=== PATIENT | male | born 1940 | race Caucasian/White ===

== ENCOUNTER 2019-03-08 23:15 | Emergency (ER) | payer OTHER, MEDICAID ==
[~2019-03-08] VITALS: Ht 170.2 cm; Wt 71.2 kg
[2019-03-08 23:15] VITALS: BP 122/50
--- NOTE | 2019-03-08 23:15 | NUR ---
78/M BIBA FROM [facility]. PT C/O DIARRHEA X3 DAYS. PT REPORTS MILD DIFFUSE ABD PAIN. DENIES FEVER, CP, SOB, N/V OR DYSURIA. PT AOX4, BEDBOUND, SKIN NORMAL WARM LOOSE AND DRY, SPO2 98% ON RA, RR 26 EVEN AND UNLABORED. LUNG SOUNDS CLEAR BL. BS HYPOACTIVE X4, ABD SOFT FLAT MILDLY TENDER. LBM 15 MINS AGO.
--- NOTE | 2019-03-08 23:20 | NUR ---
PT WITH 1.5CM SKIN TEAR ON R FA, OLD DRESSING REMOVED, CLEANED WITH NS AND GAUZE, PAT DRY, COVERED WITH TRANSPARENT DRESSING.
--- NOTE | 2019-03-08 23:20 | NUR ---
PT BIBA TO BED 3
[2019-03-08 23:43] LABS: BASOPHILS # (AUTO) 0.1 K/uL (0.00-0.22); BASOPHILS % (AUTO) 0.9 % (0.0-2.0); EOSINOPHILS # (AUTO) 0.1 K/uL (0-0.4); EOSINOPHILS % (AUTO) 0.6 % (0.0-4.0); HEMATOCRIT 26.9 % (36-52); HEMOGLOBIN 8.7 g/dL (12.0-18.0); LYMPHOCYTES # (AUTO) 0.4 K/uL (2.0-11.5); MEAN CORPUSCULAR HEMOGLOBIN 26 pg (27-31); MEAN CORPUSCULAR HGB CONC 33 g/dL (33-37); MEAN CORPUSCULAR VOLUME 81.1 fL (80-94); MONOCYTES % (AUTO) 9.3 % (1.7-9.3); NEUTROPHILS # (AUTO) 9.5 K/uL (1.8-7.7); NEUTROPHILS % (AUTO) 85.9 % (42.2-75.2); PLATELET COUNT (AUTO) 347 K/uL (140-450); RED BLOOD CELL COUNT(AUTO) 3.32 MIL/uL (4.20-6.10); WHITE BLOOD COUNT (AUTO) 11.1 K/uL (4.8-10.8)
[2019-03-08 23:53] LABS: ANION GAP 14.7 (8-16); CARBON DIOXIDE 23.8 mmol/L (21-32); CHLORIDE 103 mmol/L (98-107); GLUCOSE 97 mg/dL (74-106); LYMPHOCYTES % (AUTO) 3.3 % (20.5-51.1); POTASSIUM 4.5 mmol/L (3.5-5.1); RED CELL DISTRIBUTION WIDTH 22.7 % (11.6-13.7); SODIUM SERUM 137 mmol/L (136-145); UREA NITROGEN, BLOOD 38 mg/dL (7-18)
[2019-03-08 23:59] LABS: ASPARTATE AMINOTRANSFERASE 15 U/L (15-37); LIPASE 101 U/L (73-393); TOTAL BILIRUBIN 0.9 mg/dL (0.0-1.0)
[2019-03-09] MEDS ORDERED: NACL 0.9% 1,000 ML IV ONE ×2 (00:25→03:50)
--- NOTE | 2019-03-09 01:30 | NUR ---
PT LAYING IN BED, RR EVEN AND UNLABORED. PT WITH LOOSE, GREEN BOWEL MOVEMENT. PT NOTED WITH INCONTINENCE-RELATED REDNESS AROUND PERIANAL AREA. PT CLEANED, DIAPER CHANGED AND REPOSITIONED. PT TOLERATED WELL. VSS. ALL NEEDS MET AT THIS TIME.
--- NOTE | 2019-03-09 01:33 | NUR ---
DR MILLER AT BEDSIDE. NOTIFIED PT'S REQUEST FOR ANTI-DIARRHEAL. PER ER MD, PT TO BE DISCHARGED WITH IMODIUM.
--- NOTE | 2019-03-09 01:33 | NUR ---
CALLED PT'S SON DOMINICK [phone] AND PT'S FAMILY GLENNA [phone] WITH PT'S PERMISSION, NO ANSWER X2. AIRCRAFT WORKER MADE AWARE, [facility] SET UP, ESTIMATED TIME OF CHEMICAL TANK WORKER [phone]. PT MADE AWARE.
--- NOTE | 2019-03-09 02:39 | NUR ---
PT LAYING IN BED, RR EVEN AND UNLABORED. PT C/O MILD BACK DISCOMFORT, PT REPOSITIONED, REPORTS RELIEF AND COMFORT. VSS. ALL NEEDS MET AT THIS TIME.
--- NOTE | 2019-03-09 03:16 | NUR ---
CALLED [facility] [phone], NO ANSWER
--- NOTE | 2019-03-09 03:24 | NUR ---
CALLED [facility], NOTIFIED THAT PT WILL BE DISCHARGED BACK.
--- NOTE | 2019-03-09 03:50 | NUR ---
BP 88/43, HR 75. PT ASYMPTOMATIC, DENIES DIZZINESS, CP, SOB. PT AOX4. DR MILLER MADE AWARE. 1L NS BOLUS ORDERED, ADMINISTERED WITH PRESSURE BAG.
--- NOTE | 2019-03-09 04:05 | NUR ---
[facility] AT BEDSIDE.
[2019-03-09 04:07] VITALS: BP 101/52
--- NOTE | 2019-03-09 04:07 | NUR ---
Patient discharged with v/s stable. Written and verbal after care instructions given and explained. Patient alert, oriented and verbalized understanding of instructions. Transported via gurney to assisted living [facility]. [facility] was called for pt to be discharged back to facility. All questions addressed prior to discharge. ID band removed. Patient advised to follow up with PMD. Rx of IMODIUM, CIPRO given. Patient educated on indication of medication including possible reaction and side effects. Opportunity to ask questions provided and answered.
== END 2019-03-09 04:07 ==
LOC: MED 23:15
DX: R19.7 Diarrhea, unspecified (principal); R10.13 Epigastric pain; I11.0 Hypertensive heart disease with heart failure; I50.9 Heart failure, unspecified; E03.9 Hypothyroidism, unspecified; Z86.73 Personal history of transient ischemic attack (TIA), and cerebral infarction without residual deficits; Z90.89 Acquired absence of other organs; Z85.46 Personal history of malignant neoplasm of prostate
CPT/HCPCS: 36415; 80053; 83690; 85025; 99283; J7030

== ENCOUNTER 2019-03-13 18:01 | Inpatient (IN) | payer OTHER, MEDICAID ==
[~2019-03-13] VITALS: Ht 170.2 cm; Wt 69.9 kg
[2019-03-13 18:04] VITALS: BP 133/72
--- NOTE | 2019-03-13 18:04 | NUR ---
BIBA. AAOX4.PT BROUGHT IN FROM [facility] FOR DIARRHEA X3 WKS COFFEE GROUND. DENIES NAUSEA AND VOMITING. BOWEL SOUNDS TO ALL QUADRANTS UPON AUSCULTATION. NON TENDER TO TOUCH. HOB UP. BED SIDE RAILS UP X1. ON LOW BED POSITION, LOCKED. ER MADE AWARE OF PT STATUS.
--- NOTE | 2019-03-13 18:04 | NUR ---
Patient BIBA BLS, transferred to bed 7. RN evaluating patient at bedside.
[2019-03-13] MEDS ORDERED: NACL 0.9% 1,000 ML IV ONE (18:18)
[2019-03-13] MEDS ORDERED: NACL 0.9% 1,500 ML IV SCH (18:18)
[2019-03-13] MEDS ORDERED: metroNIDAZOLE 500 MG/NS PREMIX 100 ML IV ONE (18:20)
[2019-03-13] MEDS ORDERED: ALBUTEROL SULFATE/IPRATROPIU 3 ML SOL IH ONE (18:20)
[2019-03-13] MEDS ORDERED: DEXAMETHASONE 10 MG/ML VIAL IVP ONE (18:20)
[2019-03-13] MEDS ORDERED: ASCO500T45 PO (18:38)
[2019-03-13] MEDS ORDERED: SYN.05 PO ×2 (18:38→18:43)
[2019-03-13] MEDS ORDERED: BISA5TAB79 PO (18:38)
[2019-03-13] MEDS ORDERED: OSC500 PO (18:38)
[2019-03-13] MEDS ORDERED: FERR325E14 PO (18:38)
[2019-03-13] MEDS ORDERED: [UNRECOGNIZED DRUG - CODE] PO (18:38)
[2019-03-13] MEDS ORDERED: LEVO0.2T5 PO (18:38)
[2019-03-13] MEDS ORDERED: [UNRECOGNIZED DRUG - CODE] PO (18:43)
[2019-03-13] MEDS ORDERED: ACET-2619 PO (18:43)
[2019-03-13 18:54] LABS: BASOPHILS # (AUTO) 0.1 K/uL (0.00-0.22); EOSINOPHILS # (AUTO) 0.1 K/uL (0-0.4); EOSINOPHILS % (AUTO) 0.7 % (0.0-4.0); HEMATOCRIT 28.1 % (36-52); HEMOGLOBIN 9.4 g/dL (12.0-18.0); LYMPHOCYTES # (AUTO) 0.4 K/uL (2.0-11.5); LYMPHOCYTES % (AUTO) 3.8 % (20.5-51.1); MEAN CORPUSCULAR HEMOGLOBIN 27 pg (27-31); MEAN CORPUSCULAR HGB CONC 33 g/dL (33-37); MEAN CORPUSCULAR VOLUME 81.3 fL (80-94); MONOCYTES # (AUTO) 0.7 K/uL (0.8-1.0); MONOCYTES % (AUTO) 6.8 % (1.7-9.3); NEUTROPHILS # (AUTO) 8.6 K/uL (1.8-7.7); NEUTROPHILS % (AUTO) 87.7 % (42.2-75.2); PLATELET COUNT (AUTO) 389 K/uL (140-450); RED BLOOD CELL COUNT(AUTO) 3.46 MIL/uL (4.20-6.10); RED CELL DISTRIBUTION WIDTH 23.1 % (11.6-13.7); WHITE BLOOD COUNT (AUTO) 9.8 K/uL (4.8-10.8)
--- NOTE | 2019-03-13 19:15 | NUR ---
Pt report given to NELI Saravia. Transfer of care at this time.
--- NOTE | 2019-03-13 19:17 | NUR ---
REPORT RECIVED FROM NELI STOCKTON. TRANSFER OF CARE AT THIS TIME.
[2019-03-13 19:32] LABS: AMYLASE 39 U/L (25-115); ANION GAP 16.9 (8-16); CARBON DIOXIDE 22.5 mmol/L (21-32); CHLORIDE 103 mmol/L (98-107); GLUCOSE 106 mg/dL (74-106); MAGNESIUM 1.9 mg/dL (1.8-2.4); POTASSIUM 4.4 mmol/L (3.5-5.1); SODIUM SERUM 138 mmol/L (136-145); UREA NITROGEN, BLOOD 30 mg/dL (7-18)
[2019-03-13 19:33] LABS: LIPASE 123 U/L (73-393)
[2019-03-13 19:34] LABS: ACETONE, SERUM NEGATIVE (NEGATIVE)
[2019-03-13 19:37] LABS: ALBUMIN 3.1 g/dL (3.4-5.0); ASPARTATE AMINOTRANSFERASE 15 U/L (15-37); TOTAL BILIRUBIN 0.6 mg/dL (0.0-1.0)
--- NOTE | 2019-03-13 19:45 | NUR ---
PT TAKEN TO CT
[2019-03-13 20:07] LABS: APPEARANCE,URINE CLOUDY (CLEAR); BILIRUBIN,URINE NEGATIVE (NEGATIVE); BLOOD, URINE 2+ (NEGATIVE); COLOR,URINE YELLOW (YELLOW); LEUKOCYTE ESTERASE ,URINE 3+ (NEGATIVE); NITRITE, URINE POSITIVE (NEGATIVE); UGLUCOSE NEGATIVE (NEGATIVE)
[2019-03-13 20:10] LABS: RBC,URINE 11-20 (MOD) /HPF (0-5); WBC,URINE TOO MANY TO COUNT /HPF (0-5)
--- NOTE | 2019-03-13 20:45 | NUR ---
PT AWAKE. VSS. WILL CONTINUE TO MONITOR.
[2019-03-13] MEDS ORDERED: CIPROFLOXACIN 250 MG TAB PO ONE (20:55)
--- NOTE | 2019-03-13 21:17 | NUR ---
RECEIVED FROM ER, PT AWAKE ALERT O X 3. PT HAS MILTIPLE SKIN TEARS ON R HAND, PT HAS SACRAL WOUND. PT HAS IV ON THE LEFT AC G 20 INFUSING WELL. POC DISCUSSED.ON FALL RISK. BED ALARM ON. ORIENTED TO UNIT. BED IN LOWEST POSITION. WILL CONTINUE TO MONITOR
[2019-03-13] MEDS ORDERED: MORPHINE SULFATE 2 MG/ML SYR IVP PRN (21:45)
[2019-03-13] MEDS ORDERED: ONDANSETRON 4 MG/2 ML VIAL IM/IVP PRN (21:45)
[2019-03-13] MEDS ORDERED: ACETAMINOPHEN 325 MG TAB PO PRN (21:45)
[2019-03-13] MEDS ORDERED: DOCUSATE SODIUM 100 MG GELCAP PO PRN (21:45)
--- NOTE | 2019-03-13 22:05 | NUR ---
Patient will be admitted to care of Dr. Jacobo. Admited to [facility]. Will go to room 119B. Belongings list completed. Report to NELI Lux. Transfer of care at this time.
[2019-03-13 22:10] LABS: PROTHROMBIN TIME 12.7 secs (10.8-13.4)
[2019-03-13 22:12] LABS: BARBITURATE, URINE NEG. ng/ml (NEG <=200); BENZODIAZEPINE, URINE NEG. ng/mL (NEG <=200); CANNABINOID, URINE NEG. ng/mL (NEG <=50); COCAINE, URINE NEG. ng/mL (NEG <=300); OPIATE, URINE NEG. ng/mL (NEG <=2000); PHENCYCLIDINE SCREEN,URINE NEG. ng/mL (NEG <=25)
[2019-03-13 22:21] LABS: CHOL/HDL RATIO 4.1 (1-4.5); PHOSPHORUS 3.8 mg/dL (2.5-4.9); THYROID STIMULATING HORMONE 72.22 uIU/mL (0.34-3.74)
--- NOTE | 2019-03-14 00:32 | NUR ---
NO SPUTUM CAN BE EXPECTORATED BY PATIENT. DR. RUIZ AWARE. SPUTUM CUP STILL AT BEDSIDE
[2019-03-14] MEDS: DEXT 5% /NACL 0.9% 1,000 ML IV SCH ×2 (01:51→13:20)
--- NOTE | 2019-03-14 03:00 | NUR ---
INDUCED BY RT, BUT WILL TRY AGAIN
[2019-03-14 04:00] VITALS: BP 128/70
--- NOTE | 2019-03-14 04:00 | NUR ---
PT WENT TO THE RADIOLOGY FOR CT SCAN ABDOMEN/PELVIS AND CHEST W/O CONTRAST
--- NOTE | 2019-03-14 04:20 | NUR ---
TRANSPORTED BACK TO ROOM FROM RADIOLOGY.PT TOLERATING WELL. NO RESPIRATORY DISTRESS
[2019-03-14] MEDS: metroNIDAZOLE 500 MG/NS PREMIX 100 ML IV SCH ×3 (05:44→20:27)
[2019-03-14] MEDS: LEVOTHYROXINE 0.1 MG TAB PO SCH (05:44)
--- NOTE | 2019-03-14 07:20 | NUR ---
ENDORSED TO AM SHIFT FOR CONTINUITY OF CARE.PT IN STABLE CONDITION
--- NOTE | 2019-03-14 07:21 | NUR ---
RECEIVED REPORT FROM BAR GAUGER AND LUBRICATOR TENDER NURSE EDER AT BEDSIDE. PT IN STABLE CONDITION. RESPIRATIONS EVEN AND UNLABORED. ROOM AIR. IV INTACT AND PATENT. SAFETY MEASURES IN PLACE. BED IN LOW POSITION. BED ALARM ON. CALL LIGHT AT BEDSIDE. FAMILY MEMBER AT BEDSIDE. WILL CONTINUE TO MONITOR.
[2019-03-14 08:00] VITALS: BP 105/56
--- NOTE | 2019-03-14 08:37 | NUR ---
PATIENT HAS BEEN SCREENED AND CATEGORIZED HIGH NUTRITION RISK. PATIENT WILL BE SEEN WITHIN 1-2 DAYS OF ADMISSION. 03/14/19-03/15/[address]
[2019-03-14] MEDS ORDERED: LEVOTHYROXINE 0.1 MG TAB PO SCH (09:00)
[2019-03-14] MEDS ORDERED: LEVOTHYROXINE 0.05 MG TAB PO SCH (09:00)
--- NOTE | 2019-03-14 09:10 | NUR ---
GAVE ORDERED DUE MEDICATIONS AT THIS TIME. PT TOLERATED WELL. WILL CONTINUE TO MONITOR. CALL LIGHT AT BEDSIDE. BED IN LOW POSITION. BED ALARM ON.
[2019-03-14] MEDS: PANTOPRAZOLE 40 MG INJ VIAL IVP SCH (09:44)
[2019-03-14] MEDS: ASCORBIC ACID 500 MG TAB PO SCH (09:44)
[2019-03-14] MEDS: LACTOBACILLUS RHAMNOSUS GG 1 EACH CAP PO SCH (09:44)
[2019-03-14] MEDS: FERROUS SULFATE 325 MG TABEC PO SCH (09:44)
--- NOTE | 2019-03-14 11:05 | NUR ---
S.T. BEDSIDE SWALLOW EVAL COMPLETED See report for details. Pt presents with adequate oropharyngeal swallow function w/o overt s/s aspiration across all textures. Pt is also also able to self-feed with little difficulty. Recommend: 1) Advance to regular diet textures, thin liquids okay. 2) P.O. meds whole okay, one at a time. 3) Nsg to assist with tray set up to promote self-feeding, as well as setting HOB at 90 degrees for all P.O. intake. No further swallow tx indicated at this time as pt appears to be functioning at baseline level. DC to nsg care. D/w pt and NELI Christianson results/recommendations. Time 5216-7484
[2019-03-14 12:00] VITALS: BP 126/65
--- NOTE | 2019-03-14 12:45 | NUR ---
FNS FOR LUNCH PLATE. PT WAS SEEN BY SPEECH THERAPY FOR SWALLOW EVALUATION AND NOW IS ON REGULAR DIET.
--- NOTE | 2019-03-14 14:06 | NUR ---
WOUND CARE EVALUATION NOTE: REASON FOR EVALUATION: LOW SULMA SCALE AND SACRALCOCCYX WOUNDS SKIN ASSESSMENT DONE WITH THIS 78 Y/O MALE PT ADMITTED TO [facility] FROM [facility] WITH INITIAL DX COLITIS AND DEHYDRATION. PT. ADMITTED WITH PRESSURE ULCER TO SACRALCOYX PAST MEDICAL HX INCLUDES HTN, CHF, CVA WITH RLE WEAKNESS. ALL ABOVE INFORMATION OBTAINED FROM ADMISSION H&P. PT IS AWAKE. SKIN IS WARM AND DRY, BLE NO HAIR GROWTH, NO EDEMA. DORSAL PEDAL PULSES PRESENT AND NORMAL. PLAN OF CARE DISCUSSED AND AGREEABLE WITH RECOMMENDATIONS. PLAN OF CARE DISCUSSED WITH PRIMARY RN. INTEGUMENTARY: -MAD TO RIGHT AND LEFT BUTTOCKS, SKIN REDNESS -PRESSURE ULCER STAGE 2 TO SACRALCOCCYX 1X1X0.1CM, WOUND BED WHITE AND MOIST, FLAQUITA-WOUND SKIN REDNESS EXTENDED TO R/L BUTTOCKS MAD. NO ODOR, OPTIFOAM IN PLACE -BILATERAL HEELS THICKEN CALLUS BLANCHABLE REDNESS RECOMMENDATIONS: -APPLY Z GUARD TO SACRALCOCCYX, RIGHT AND LEFT BUTTOCKS AND APPLY FOAM DRESSING TO SACROCOCCYX QD AND PRN IF SOILING -APPLY HEEL PROTECTORS TO BOTH HEELS AT ALL TIMES -OFFLOAD BILATERAL HEELS BY PLACING PILLOWS UNDER CALVES UNLESS OTHERWISE CONTRAINDICATED -PRESSURE REDISTRIBUTION SURFACE THERAPY -TURN AND REPOSITION Q2H, OFFLOAD SACRALCOCCYX AND BUTTOCKS BY TURNING RIGHT AND LEFT -CONTINUE TO FOLLOW RD RECOMMENDATIONS ALL ABOVE RECOMMENDATIONS DISCUSSED WITH PRIMARY RN. WILL FOLLOW UP PT. 7-10 DAYS PLEASE CONTACT WOUND CARE NURSE FOR ANY QUESTION AND CHANGE OF WOUND CONDITION. Addendum: 03/14/[address] RN (Grace) RIGHT UPPER ARM SKIN TEAR 1X1CM WITH SUPERFICIAL DEPTH, WOUND BED IS PINK AND MOIST, FLAQUITA-WOUND SKIN INTACT, NO S/S OF INFECTION.RECOMMEND TO CLEANSE WITH NS. PAT DRY , APPLY ADAPTIC DRESSING AND COVER WITH SMALL ISLAND DRESSING CHANGE DRESSING Q MWF
[2019-03-14] MEDS ORDERED: Z-GUARD PASTE TP PRN (14:30)
--- NOTE | 2019-03-14 15:30 | NUR ---
PT LYING IN BED IN STABLE CONDITION SLEEPING. RESPIRATIONS EVEN AND UNLABORED. WILL CONTINUE TO MONITOR. BED IN LOW POSITION. BED ALARM ON. CALL LIGHT AT BEDSIDE.
[2019-03-14] MEDS: NACL 0.9% 1,000 ML IV SCH (15:49)
[2019-03-14 16:00] VITALS: BP 121/59
--- NOTE | 2019-03-14 16:45 | NUR ---
MOVED TO ROOM 113 FOR WOUND BED AT THIS TIME. PT TOLERATED WELL. WILL CONTINUE TO MONITOR.
--- NOTE | 2019-03-14 17:14 | NUR ---
03/14/19 RD INITIAL ASSESSMENT COMPLETED PLEASE REFER TO NUTRITION ASSESSMENT UNDER CARE ACTIVITY FOR ESTIMATED NUTRITIONAL NEEDS. 1. CONTINUE REGULAR DIET TOLERATED 2. RECOMMEND NEPRO BID 3. WOUND HEALING EDUCATION WAS PROVIDED 4. RD TO FOLLOW-UP 3-5 DAYS, MODERATE RISK TREVOR GARZA RD
[2019-03-14] MEDS: guaiFENesin DM 200/20 MG-10 ML 10 ML UDC PO PRN (17:31)
[2019-03-14] MEDS: CALCIUM CARBONATE 500 MG TAB PO SCH (17:31)
--- NOTE | 2019-03-14 17:45 | NUR ---
PT LYING IN BED EATING DINNER IN STABLE CONDITION. WILL CONTINUE TO MONITOR.
--- NOTE | 2019-03-14 19:15 | NUR ---
GAVE REPORT TO AUDITING CONTROL CLERK NURSE MARIANA FOR CONTINUITY OF CARE. PT IN STABLE CONDITION.
--- NOTE | 2019-03-14 19:16 | NUR ---
RECEIVED PT SLEEPING, EASILY AROUSABLE, AAOX4, DENIES ANY PAIN, NO SOB NOTED, IVF INFUSING WELL, SAFETY MEASURES IN PLACE, SIDE RAILS UP AND BED ALARM ON, MAINTAINED ON CONTACT ISOLATION, PT IS BEDBOUND, WILL REPOSITION Q2H AND OFFLOAD PRESSURE AREAS, CALL LIGHT WITHIN REACH.
[2019-03-14 20:00] VITALS: BP 107/55
--- NOTE | 2019-03-14 21:30 | NUR ---
PT HAD LARGE SOFT BROWN STOOL, NO DIARRHEA NOTED, CLEANED, REPOSITIONED AND OFFLOAD PRESSURE AREAS, ALL NEEDS ATTENDED.
[2019-03-15] VITALS: BP 110/58
--- NOTE | 2019-03-15 00:40 | NUR ---
PT HAD LOOSE STOOL MODERATE AMOUNT, CLEANED AND REPOSITIONED, STOOL SENT TO LAB FOR TEST, CONTINUE TO MONITOR CLOSELY.
[2019-03-15] MEDS ORDERED: LEVOFLOXACIN 750 MG/D5W PREMIX 150 ML IV SCH (01:00)
[2019-03-15 04:00] VITALS: BP 108/62
--- NOTE | 2019-03-15 04:00 | NUR ---
PT SLEEPING, EASILY AROUSABLE, VITAL SIGNS STABLE, NO SIGNS OF PAIN OR SOB, IVF INFUSING WELL, MONITORED CLOSELY.
[2019-03-15] MEDS: NACL 0.9% 1,000 ML IV SCH ×2 (05:03→19:21)
[2019-03-15] MEDS: metroNIDAZOLE 500 MG/NS PREMIX 100 ML IV SCH ×3 (05:12→20:43)
[2019-03-15] MEDS: LEVOTHYROXINE 0.1 MG TAB PO SCH (06:36)
[2019-03-15] MEDS: CALCIUM CARBONATE 500 MG TAB PO SCH ×2 (06:36→17:30)
--- NOTE | 2019-03-15 06:47 | NUR ---
PT SLEEPING, EASILY AROUSABLE, DUE PO MEDS TAKEN, TOLERATED WELL, NO SIGNS OF PAIN NOR SOB, IVF INFUSING WELL.
--- NOTE | 2019-03-15 07:30 | NUR ---
Received bedside report from pm nurse Agapito. Pt awake in bed, no signs of distress. L AC IV intact with ongoing D5NS @ 70 ml/hr. Call light within reach.
[2019-03-15 08:00] VITALS: BP 120/56
[2019-03-15 08:55] LABS: HEMATOCRIT 26.6 % (36-52); HEMOGLOBIN 8.9 g/dL (12.0-18.0); MEAN CORPUSCULAR HEMOGLOBIN 27 pg (27-31); MEAN CORPUSCULAR HGB CONC 34 g/dL (33-37); MEAN CORPUSCULAR VOLUME 81.3 fL (80-94); PLATELET COUNT (AUTO) 319 K/uL (140-450); RED BLOOD CELL COUNT(AUTO) 3.27 MIL/uL (4.20-6.10); RED CELL DISTRIBUTION WIDTH 23.4 % (11.6-13.7); WHITE BLOOD COUNT (AUTO) 7.5 K/uL (4.8-10.8)
[2019-03-15 09:01] LABS: ANION GAP 13.7 (8-16); CARBON DIOXIDE 23.7 mmol/L (21-32); CHLORIDE 106 mmol/L (98-107); CREATININE 1.7 mg/dL (0.7-1.3); GLUCOSE 93 mg/dL (74-106); POTASSIUM 4.4 mmol/L (3.5-5.1); SODIUM SERUM 139 mmol/L (136-145); UREA NITROGEN, BLOOD 28 mg/dL (7-18)
[2019-03-15 09:11] LABS: MAGNESIUM 1.9 mg/dL (1.8-2.4); PHOSPHORUS 3.1 mg/dL (2.5-4.9)
[2019-03-15] MEDS: LACTOBACILLUS RHAMNOSUS GG 1 EACH CAP PO SCH (09:29)
[2019-03-15] MEDS: FERROUS SULFATE 325 MG TABEC PO SCH (09:29)
[2019-03-15] MEDS: ASCORBIC ACID 500 MG TAB PO SCH (09:29)
[2019-03-15] MEDS: PANTOPRAZOLE 40 MG INJ VIAL IVP SCH (09:30)
[2019-03-15 09:43] LABS: LYMPHOCYTES % (MANUAL) 2 % (20-46)
[2019-03-15 09:44] LABS: BASOPHILS % (MANUAL) 0 % (0-2); EOSINOPHILS % (MANUAL) 0 % (0-4); METAMYELOCYTES % 1 % (0-0); MONOCYTES % (MANUAL) 3 % (5-12); MYELOCYTES % 1 % (0-0)
[2019-03-15] MEDS: guaiFENesin DM 200/20 MG-10 ML 10 ML UDC PO PRN (09:45)
--- NOTE | 2019-03-15 09:45 | NUR ---
Pt with intermittent coughing. Guiafenesin DM given po.
[2019-03-15 10:12] LABS: T4 (THYROXINE) 2.5 ug/dL (4.5-12.0)
--- NOTE | 2019-03-15 10:45 | NUR ---
Reassessed pt post-cough syrup. Pt asleep, no cough noted, respirations even & nonlabored. Call light within reach.
[2019-03-15] MEDS: Z-GUARD PASTE TP SCH (13:13)
--- NOTE | 2019-03-15 19:20 | NUR ---
Report given to pm nurse Bella. Pt resting in bed, awake, no signs of distress. Left AC IV intact with ongoing D5NS @ 70ml/hr. Call light within reach.
--- NOTE | 2019-03-15 19:21 | NUR ---
REPORT RECEIVED FROM AM NURSEBOZENA. PT SITTING IN BED, NO VISIBLE SIGNS OF DISTRESS. IV 22G IN LEFT AC INTACT AND RUNNING IVF WELL. SAFETY PRECAUTIONS IN PLACE. CALL LIGHT WITHIN REACH.
[2019-03-15 20:00] VITALS: BP 117/63
--- NOTE | 2019-03-15 20:00 | NUR ---
Pt stated that he urinated. Pt cleaned and turned to right lateral position. Safety precautions in place. Call light within reach.
--- NOTE | 2019-03-15 22:00 | NUR ---
PT REPOSITIONED ON HIS BACK. PT DENIES ANY NEEDS. CALL LIGHT W/IN REACH.
--- NOTE | 2019-03-16 | NUR ---
ROUNDED ON PT. PT STATED HE URINATED. PT CLEANED AND A CONDOM CATH WAS PLACED. PT REPOSITIONED ON LEFT LATERAL. SAFETY PRECAUTIONS IN PLACE. CALL LIGHT WITHIN REACH.
[2019-03-16] MEDS: NACL 0.9% 1,000 ML IV SCH ×3 (02:06→23:57)
--- NOTE | 2019-03-16 02:16 | NUR ---
PT REPOSITIONED TO RIGHT LATERAL. SACRAL DRESSING CHANGED. URINE IS DRAINING WELL VIA CONDOM CATH. PT DENIES PAIN. CALL LIGHT WITHIN REACH.
--- NOTE | 2019-03-16 04:10 | NUR ---
SEEN PT ASLEEP BUT EASILY AROUSABLE. VITAL SIGNS CHECKED. PT DENIES ANY PAIN. CONDOM CATH CAME OFF. PERICARE RENDERED. NEW CONDOM CATH IN PLACED. PT REPOSITIONED ON HIS LEFT SIDE. CALL LIGHT W/IN REACH.
[2019-03-16 04:20] VITALS: BP 130/70
[2019-03-16] MEDS: metroNIDAZOLE 500 MG/NS PREMIX 100 ML IV SCH ×2 (04:36→12:36)
[2019-03-16] MEDS: LEVOTHYROXINE 0.1 MG TAB PO SCH (06:25)
--- NOTE | 2019-03-16 06:29 | NUR ---
Pt awaken to take medication. Pt easily arousable. Pt repositioned supine. Safety precautions in place. Condom cath secure and draining well. Call light within reach.
[2019-03-16] MEDS: CALCIUM CARBONATE 500 MG TAB PO SCH ×2 (06:31→16:40)
--- NOTE | 2019-03-16 07:38 | NUR ---
RECEIVED BED SIDE REPORT FROM LEARNING DEVELOPER RN, INTRODUCED SELF, PT AWAKE, ALERT, SKIN TEAR ON R FOREARM, STAGE 1 PRESSURE ULCER ON SACRUM, DRESSING CHANGED WITH LEARNING DEVELOPER, ON RA, IN NO RESPIRATORY DISTRESS, IV L AC 20 G NS RUNNING 70ML/HR, BED LOW, CALL LIGHT WITHIN REACH, WILL CONTINUE TO MONITOR
[2019-03-16 08:00] VITALS: BP 118/59
[2019-03-16] MEDS: ASCORBIC ACID 500 MG TAB PO SCH (08:45)
[2019-03-16] MEDS: LACTOBACILLUS RHAMNOSUS GG 1 EACH CAP PO SCH (08:45)
[2019-03-16] MEDS: FERROUS SULFATE 325 MG TABEC PO SCH (08:45)
[2019-03-16] MEDS: PANTOPRAZOLE 40 MG INJ VIAL IVP SCH (08:47)
--- NOTE | 2019-03-16 09:00 | NUR ---
GAVE PT AM MEDS, TOLERATED WELL, PRESSURE ULCER ON SACRUM BLANCHABLE WITH FOAM DRESSING ON, RIGHT FOREARM SKIN TEAR HEALED AND SCABBED WITH A BANDAGE WRAPPED AROUND, CONDOM CATH APPLIED BECAUSE PREVIOUS CONDOM CATH WAS FALLING OFF, PT TOLERATED WELL, MADE PT AWARE THAT STOOL SPECIMEN WILL NEED TO BE COLLECTED, CALL LIGHT WITHIN REACH, BED LOW, WILL CONTINUE TO MONITOR
[2019-03-16 10:21] LABS: HEMATOCRIT 24.1 % (36-52); MEAN CORPUSCULAR HEMOGLOBIN 27 pg (27-31); MEAN CORPUSCULAR HGB CONC 33 g/dL (33-37); MEAN CORPUSCULAR VOLUME 80.8 fL (80-94); PLATELET COUNT (AUTO) 276 K/uL (140-450); RED BLOOD CELL COUNT(AUTO) 2.98 MIL/uL (4.20-6.10); RED CELL DISTRIBUTION WIDTH 23.2 % (11.6-13.7); WHITE BLOOD COUNT (AUTO) 7.9 K/uL (4.8-10.8)
[2019-03-16 10:34] LABS: MAGNESIUM 1.7 mg/dL (1.8-2.4); PHOSPHORUS 2.5 mg/dL (2.5-4.9)
[2019-03-16 10:36] LABS: LYMPHOCYTES % (MANUAL) 3 % (20-46); MONOCYTES % (MANUAL) 4 % (5-12)
[2019-03-16 10:37] LABS: METAMYELOCYTES % 1 % (0-0); MYELOCYTES % 1 % (0-0)
[2019-03-16 10:43] LABS: ANION GAP 11.5 (8-16); CARBON DIOXIDE 21.5 mmol/L (21-32); CHLORIDE 106 mmol/L (98-107); CREATININE 1.6 mg/dL (0.7-1.3); GLUCOSE 127 mg/dL (74-106); SODIUM SERUM 135 mmol/L (136-145); UREA NITROGEN, BLOOD 25 mg/dL (7-18)
[2019-03-16] MEDS ORDERED: MAGNESIUM OXIDE 400 MG TAB PO SCH (11:30)
[2019-03-16] MEDS: Z-GUARD PASTE TP SCH (12:37)
--- NOTE | 2019-03-16 13:00 | NUR ---
CONDOM CATH SLIPPED OFF, NOT VERY EFFECTIVE FOR PT, DECIDED NOT TO REAPPLY, REPOSITIONED PT, APPLIED Z GUARD, APPLIED NEW FOAM DRESSING TO SACRAL AREA. MADE PT AWARE TO CALL RN FOR CLEANING, GAVE AFTERNOON MEDS, PT TOLERATED WELL, CALL LIGHT WITHIN REACH, WILL CONTINUE TO MONITOR
--- NOTE | 2019-03-16 15:00 | NUR ---
REPOSITIONED PT TO OTHER SIDE, RESTING COMFORTABLY IN BED, CALL LIGHT WITHIN REACH, WILL CONTINUE TO MONITOR
[2019-03-16 16:00] VITALS: BP 101/47
--- NOTE | 2019-03-16 17:54 | NUR ---
PT REFUSED HIS NEPHRO, HE SAID IT MAKES HIS STOMACH SICK. TOLD PT IT'S NUTRITIOUS AND GOOD FOR HIS KIDNEY. IT'S WHAT DOCTOR ORDERED FOR HIM TO GET HIM BETTER, BUT PT STILL REFUSING.
--- NOTE | 2019-03-16 19:10 | NUR ---
GAVE BED SIDE REPORT TO BUILDING MANAGER RN, PT ASLEEP, ON RA, IN NO RESPIRATORY DISTRESS, BED LOW, CALL LIGHT WITHIN REACH
--- NOTE | 2019-03-16 19:11 | NUR ---
RECEIVED BEDSIDE REPORT FROM DAY SHIFT NURSE RUSSELL PT AWAKE, ALERT, NO S/S OF SOB OR ANY RESPIRATORY DISTRESS NOTED ON RA. SKIN TEAR ON R FOREARM, PRESSURE ULCER ON SACRUM. IV L AC 20 G NS RUNNING 70ML/HR, IV SITE INTACT, PATENT, AND ASYMPTOMATIC. CONTACT PRECAUTION IN PLACE. BED IN LOW POSITION. CALL LIGHT WITHIN REACH.
[2019-03-16] MEDS ORDERED: MEROPENEM 500 MG VIAL IV ONE (20:41)
--- NOTE | 2019-03-16 20:46 | NUR ---
PT'S PLT 279 AND APTT 35.7. REPORTED AND ORDERED IT IS OK TO GIVE HEPARIN. GIVEN HEPARIN AND MERREM GIVEN ORDERED. PT TOLERATED WELL.
[2019-03-16] MEDS ORDERED: MEROPENEM 500 MG in NACL 0.9% 50 ML IV SCH (21:00)
--- NOTE | 2019-03-16 22:45 | NUR ---
PT CHANGED AND REPOSITION.
[2019-03-17] VITALS: BP 116/65
--- NOTE | 2019-03-17 | NUR ---
PT SLEEPING. VS SIGN TAKEN, WITHIN NORMAL RANGE. NO S/S OF SOB OR ANY RESPIRATION DISTRESS NOTED. WILL CONTINUE TO MONITOR.
--- NOTE | 2019-03-17 02:08 | NUR ---
PT SLEEPING. NO S/S OF SOB OR DISCOMFORT NOTED.
--- NOTE | 2019-03-17 04:15 | NUR ---
PT SLEEPING IN BED. PULL UP PT. NO S/S OF ANY DISCOMFORT. BREATHING EVENLY AND UNLABORED WITH O2 2LPM NC. WILL CONTINUE TO MONITOR. Addendum: 03/17/19 at 0706 by Bonilla Monte RN PT IS NOT ON O2.
[2019-03-17] MEDS: CALCIUM CARBONATE 500 MG TAB PO SCH ×2 (06:48→16:56)
[2019-03-17] MEDS: LEVOTHYROXINE 0.1 MG TAB PO SCH (06:48)
--- NOTE | 2019-03-17 06:48 | NUR ---
OSCAL AND SYNTHROID GIVEN ORDERED. PT TOLERATED WELL.
--- NOTE | 2019-03-17 07:25 | NUR ---
RECEIVED BED SIDE REPORT FROM OIL FIELD ROUSTABOUT RN. PT AWAKE, ALERT. NO S/S OF DISTRESS ON ROOM AIR. IV TO L AC 20 G, SEEMS LEAKING, RUNNING NS 70ML/HR. WILL START NEW IV JUDITH. PT LUNG SOUNDS CLEAR, BOWEL SOUNDS ARE ACTIVE. BED IN LOWEST POSITION, CALL LIGHT WITHIN REACH, WILL CONTINUE TO MONITOR.
--- NOTE | 2019-03-17 07:27 | NUR ---
BEDSIDE REPORT GIVEN TO DAY SHIFT NURSE. PT IN STABLE CONDITION.
[2019-03-17 08:00] VITALS: BP 118/58
[2019-03-17 08:10] LABS: BASOPHILS # (AUTO) 0.1 K/uL (0.00-0.22); BASOPHILS % (AUTO) 1.1 % (0.0-2.0); EOSINOPHILS % (AUTO) 0.3 % (0.0-4.0); HEMATOCRIT 25.5 % (36-52); HEMOGLOBIN 8.5 g/dL (12.0-18.0); LYMPHOCYTES # (AUTO) 0.3 K/uL (2.0-11.5); LYMPHOCYTES % (AUTO) 3.8 % (20.5-51.1); MEAN CORPUSCULAR HEMOGLOBIN 27 pg (27-31); MEAN CORPUSCULAR HGB CONC 33 g/dL (33-37); MEAN CORPUSCULAR VOLUME 81.4 fL (80-94); MONOCYTES # (AUTO) 0.5 K/uL (0.8-1.0); MONOCYTES % (AUTO) 5.7 % (1.7-9.3); NEUTROPHILS # (AUTO) 7.2 K/uL (1.8-7.7); NEUTROPHILS % (AUTO) 89.1 % (42.2-75.2); PLATELET COUNT (AUTO) 291 K/uL (140-450); RED BLOOD CELL COUNT(AUTO) 3.13 MIL/uL (4.20-6.10); RED CELL DISTRIBUTION WIDTH 23.9 % (11.6-13.7); WHITE BLOOD COUNT (AUTO) 8.1 K/uL (4.8-10.8)
[2019-03-17 08:18] LABS: ANION GAP 13.4 (8-16); CARBON DIOXIDE 21.8 mmol/L (21-32); CHLORIDE 107 mmol/L (98-107); CREATININE 1.7 mg/dL (0.7-1.3); GLUCOSE 85 mg/dL (74-106); POTASSIUM 4.2 mmol/L (3.5-5.1); SODIUM SERUM 138 mmol/L (136-145); UREA NITROGEN, BLOOD 23 mg/dL (7-18)
[2019-03-17 08:30] LABS: MAGNESIUM 1.9 mg/dL (1.8-2.4); PHOSPHORUS 2.7 mg/dL (2.5-4.9)
[2019-03-17] MEDS: FERROUS SULFATE 325 MG TABEC PO SCH (08:54)
[2019-03-17] MEDS: LACTOBACILLUS RHAMNOSUS GG 1 EACH CAP PO SCH (08:55)
[2019-03-17] MEDS: MEROPENEM 500 MG in NACL 0.9% 50 ML IV SCH ×2 (08:55→21:20)
[2019-03-17] MEDS: ASCORBIC ACID 500 MG TAB PO SCH (08:55)
[2019-03-17] MEDS: PANTOPRAZOLE 40 MG INJ VIAL IVP SCH (08:55)
--- NOTE | 2019-03-17 09:25 | NUR ---
NEW IV STARTED ON LEFT UA, 22G. PT TOLERATED WELL.
[2019-03-17] MEDS: HYDROcodone/APAP 5/325 MG 1 TAB TAB PO PRN (09:34)
--- NOTE | 2019-03-17 10:00 | NUR ---
PT WAS CLEANED AND REPOSITIONED. NO S/S OF DISTRESS.
--- NOTE | 2019-03-17 11:05 | NUR ---
Integration Technician Note: Per Register In Chancery Ida from [facility] , they don't have a contract with [facility] and stated she will be the one finding accepting snf for patient. She requested I fax MD's snf order, HNP, list of medication and labs to her fax number . I faxed information Ida requested. I informed Dr. Emmy Key is not contracted with [facility] and Register In Chancery from [facility] will be the one finding an accepting snf.
--- NOTE | 2019-03-17 12:35 | NUR ---
PT WAS CLEANED AND REPOSITIONED. NO S/S OF DISTRESS.
[2019-03-17] MEDS: Z-GUARD PASTE TP SCH (13:00)
--- NOTE | 2019-03-17 13:49 | NUR ---
PT WAS CLEANED AND REPOSITIONED. Z GUARD APPLIED TO SACRAL AND PERINEAL AREA. NO S/S OF DISTRESS ON RM AIR.
[2019-03-17] MEDS: NACL 0.9% 1,000 ML IV SCH (14:15)
[2019-03-17 16:00] VITALS: BP 114/56
--- NOTE | 2019-03-17 16:18 | NUR ---
CALLED [phone], SPOKE WITH DR SAINI, REPORTED MG 3.3, RECOMMENDED REPEAT MG LAB, DR SAINI SAID PT GOT 4G MG RIDER TODAY, 3.3 IS OK TO DISCHARGE. Addendum: 03/17/19 at 1623 by Joshua Mayer RN PLEASE DISCARD, WRONG PT.
--- NOTE | 2019-03-17 16:20 | NUR ---
PT WAS CLEANED AND REPOSITIONED, Z GUARD REAPPLIED TO PERIAREA. Addendum: 03/17/19 at 1821 by Joshua Mayer RN NO S/S OF DISTRESS NOTED.
--- NOTE | 2019-03-17 18:35 | NUR ---
CALLED [facility], ASKED ABOUT VACCINATION STATUS. THEY ARE NOT SURE BECAUSE PT HAS NOT BEEN THERE VERY LONG. ASKED PT, PT SAID HE GOT FLU SHOT LAST YEAR AND HAS NEVER RECEIVED PNA VAC, WANTS PNA VAC UPON DC.
--- NOTE | 2019-03-17 19:30 | NUR ---
ENDORSED PT TO SLACK COOPER RN, HASMUKH PT IN STABLE CONDITION.
--- NOTE | 2019-03-17 19:32 | NUR ---
RECEIVED PT FROM RUSSELL RN PT MACEDONIAN SPEAKER AAOX3 ON BED REST S/P CVA GENERALIZED WEAKNESS IV ON LEFT UPPER ARM PRT REPOSITIONED NOT DISTRESS NOTED INITIAL ASSESSMENT DONE
[2019-03-17 20:00] VITALS: BP 127/68
[2019-03-17 20:25] LABS: FOLIC ACID 6.5 ng/mL (>3.0)
--- NOTE | 2019-03-17 21:00 | NUR ---
REPOSITIONED LINEN CHANGED INCONTINENT NOT BM NOTED
[2019-03-18] VITALS: BP 120/65
--- NOTE | 2019-03-18 | NUR ---
PT REPOSITIONED Q2H NOT DISTRESS NOTED IV O;N LEFT UA INFUSING WELL,
[2019-03-18] MEDS: HYDROcodone/APAP 5/325 MG 1 TAB TAB PO PRN (00:34)
--- NOTE | 2019-03-18 02:10 | NUR ---
AFTER [facility]PAIN MEDIC GIVEN PT SLEEPING WELL NOT DISTRESS NOTED REPOSITIONED Q 2H
[2019-03-18] MEDS: NACL 0.9% 1,000 ML IV SCH (04:33)
--- NOTE | 2019-03-18 05:03 | NUR ---
PT HAS BEEN MONITORING CLOSE NOT BM YET BUT VOIDING WELL NOT DISTRESS NOTED, IV ;ON LEFT UA INFUSING WELL REPOSITIONED Q2H AND LINEN HAS BEEN CHANGED NECESSARY
[2019-03-18] MEDS: LEVOTHYROXINE 0.1 MG TAB PO SCH (06:29)
[2019-03-18] MEDS: CALCIUM CARBONATE 500 MG TAB PO SCH ×2 (06:30→16:13)
--- NOTE | 2019-03-18 06:49 | NUR ---
PT SLEEPING WELL NOT DISTRESS NOTED PT WILL BE ENDORSED TO DAY SHIFT NURSE FOR CONTINUE OF CARE
--- NOTE | 2019-03-18 07:25 | NUR ---
RECEIVED REPORT FROM FOREPART LASTER NURSE, PT AWAKE AOX4 SITTING UP IN BED WITH NO ACUTE DISTRESS, PAIN, OR COMPLAINTS AT THIS TIME. IV SITE INTACT, PATENT, AND INFUSING IVF PER MD ORDER. REVIEWED PLAN OF CARE AT BEDSIDE. SACRAL REDNESS DRESSING CDI.
[2019-03-18 08:00] VITALS: BP 120/62
--- NOTE | 2019-03-18 08:23 | NUR ---
PATIENT HAD SOFT BM.
--- NOTE | 2019-03-18 08:50 | NUR ---
Pressing Machine Operator Note: Per Video Game Technician Loren Cuetoaver , patient has been accepted at [facility], [address] [place] [address] . She stated [facility] is aware patient requires isolation bed. She told me she will fax [facility] snf authorization. She requested I contact [facility] to obtain room number and accepting MD. I called [facility] left a voicemail for admission coordinator. Per Loren, they do not authorize transportation services and suggested I call [employer] .
[2019-03-18] MEDS: FERROUS SULFATE 325 MG TABEC PO SCH (09:16)
[2019-03-18] MEDS: LACTOBACILLUS RHAMNOSUS GG 1 EACH CAP PO SCH (09:16)
[2019-03-18] MEDS: ASCORBIC ACID 500 MG TAB PO SCH (09:16)
[2019-03-18] MEDS: MEROPENEM 500 MG in NACL 0.9% 50 ML IV SCH (09:20)
[2019-03-18] MEDS: PANTOPRAZOLE 40 MG INJ VIAL IVP SCH (09:23)
--- NOTE | 2019-03-18 09:32 | NUR ---
ADMINISTERED SCHEDULED MEDICATIONS. ALL SAFETY PRECAUTIONS IN PLACE, WILL CONTINUE TO MONITOR.
--- NOTE | 2019-03-18 10:16 | NUR ---
Nutrition Internship Note: Per Kelle from [facility], [address] , [place] [address] their admission coordinator Catalina is currently in a meeting. Kelle stated they will find out if they have an isolation bed for patient today and call me back.
[2019-03-18] MEDS ORDERED: MERO500P9 IV (10:29)
[2019-03-18] MEDS ORDERED: LACT1.4C PO (10:29)
--- NOTE | 2019-03-18 10:44 | NUR ---
Admin Assistant Note: Per Kelle from [facility], [address] [place] [address] , she spoke with Entry Operator Loren from [place] and stated Loren will fax snf authorization to [facility]. Kelle stated patient may go to room 5B today (she is aware patient needs isolation bed), accepting physician is . Addendum: 03/18/19 at 1323 by Meme NUNEZ Niko Arnold from [facility], [address] [place] [address] , they will contact [employer] or and pay for transportation.
--- NOTE | 2019-03-18 11:01 | NUR ---
PT RESTING IN BED, NO OBVIOUS ACUTE DISTRESS, PATIENT HAS NO REQUESTS AND STATES HE HAS NO PAIN.
--- NOTE | 2019-03-18 11:58 | NUR ---
ARRANGED TRANSPORT WITH [facility] , THE [facility] SPECIALIST TIME IS 4 PM .NOTIFIED NELI MANZANARES AND LASHONDA AGUILAR
--- NOTE | 2019-03-18 12:04 | NUR ---
CALLED [facility] [phone] SPOKE WITH THE ON SITE SERVICES SPECIALIST STATED THEY DON'T PROVIDE AUTHORIZATION FOR TRANSPORT
[2019-03-18] MEDS: Z-GUARD PASTE TP SCH (12:41)
--- NOTE | 2019-03-18 13:55 | NUR ---
CALLED AND NOTIFIED SON OF PLANS TO TRANSFER TO [facility]. Addendum: 03/18/19 at 1404 by Ida Ervin Meng, RN DOMINICK
--- NOTE | 2019-03-18 14:38 | NUR ---
CONTACTED [facility] AND GAVE REPORT TO KALEY REGARDING PATIENT TRANSFER AND POC.
--- NOTE | 2019-03-18 15:13 | NUR ---
DISCHARGE PAPERWORK, INCLUDING INSTRUCTIONS TO F/U WITH HEME/ONC MD, PET/CT CHEST, AND GI DOCTOR, GIVEN TO PATIENT. NEW PRESCRIPTION/MEDICATION TEACHING AND MEDICATION RECONCILIATION TEACHING GIVEN TO PATIENT. EXPLAINED CONTINUED POC AT [facility]. PT VERBALIZED COMPLETE UNDERSTANDING OF ALL D/C INSTRUCTIONS. ALL PERSONAL BELONGINGS ARE WITH PATIENT. TARAH TAN HAS ALREADY BEEN NOTIFIED. PT AWARE OF [facility] TIME OF 1600 TODAY.
[2019-03-18 16:00] VITALS: BP 135/69
--- NOTE | 2019-03-18 16:12 | NUR ---
PATIENT WISHES TO F/U ON PNEUMOVAX AT [facility].
--- NOTE | 2019-03-18 17:48 | NUR ---
[employer] PATIENT HERE TO EXHIBITS MANAGER PATIENT. ALL PERSONAL BELONGINGS ARE WITH PATIENT. PT IN STABLE CONDITION. IV SITE NOT REMOVED- PT TO CONTINUE IV MERREM. ID BANDS REMOVED.
== END 2019-03-18 17:45 | DRG 177 ==
LOC: MED 18:01 → MTU 21:43
PROVIDERS: ADMIT General Practice; ATTEND General Practice
DX: J69.0 Pneumonitis due to inhalation of food and vomit (principal); N17.0 Acute kidney failure with tubular necrosis; I50.43 Acute on chronic combined systolic (congestive) and diastolic (congestive) heart failure; A09 Infectious gastroenteritis and colitis, unspecified; I13.0 Hypertensive heart and chronic kidney disease with heart failure and stage 1 through stage 4 chronic kidney disease, or unspecified chronic kidney disease; B96.20 Unspecified Escherichia coli [E. coli] as the cause of diseases classified elsewhere; E89.0 Postprocedural hypothyroidism; K21.9 Gastro-esophageal reflux disease without esophagitis; N18.9 Chronic kidney disease, unspecified; E86.0 Dehydration; E86.1 Hypovolemia; N30.90 Cystitis, unspecified without hematuria; N28.1 Cyst of kidney, acquired; D50.9 Iron deficiency anemia, unspecified; E83.42 Hypomagnesemia; Z16.12 Extended spectrum beta lactamase (ESBL) resistance; Z85.46 Personal history of malignant neoplasm of prostate; Z85.850 Personal history of malignant neoplasm of thyroid; Z90.49 Acquired absence of other specified parts of digestive tract; Z90.79 Acquired absence of other genital organ(s)
CPT/HCPCS: 36415; 36600; 71045; 71250; 76705; 80048; 80053; 80305; 81001; 82009; 82150; 82272; 82607; 82728; 82746; 82803; 83036; 83540; 83605; 83690; 83735; 83880; 84100; 84134; 84154; 84432; 84436; 84443; 84484; 84550; 85025; 85045; 85610; 85730; 86800; 87040; 87045; 87070; 87081; 87086; 87186; 87205; 89055; 92610; 93005; 94640; 96361; 96365; 96366; 96375; 97110; 97116; 97530; 99285; C9113; J1100; J1644; J1956; J2185; J3490; J7030; J7042; J7620; Q0092